=== PATIENT | male | born 1945 | race Caucasian/White ===

== ENCOUNTER 2024-11-22 14:02 | Outpatient (AMB) | payer OTHER, SELFPAY ==
--- NOTE | 2024-11-22 14:03 | MHC.OFFVIS ---
Intake Visit Reasons: Dementia Follow Up Allergies No Known Allergies Allergy (Verified 09/26/24 07:50) HPI Comments Details: 79 yo RH man with underlying diagnoses of bipolar disorder, hypothyroidism, HTN and DM was here for dementia probably of multifactorial in origin. She is presenting with Alzheimer's Disease and concerns regarding increased fall risk. He reports confusion associated with Alzheimer's Disease, using different words to express similar thoughts while noting a decrease in severity compared to previous episodes. While managing his medication, he has not reported any alcohol consumption and adheres to his prescribed 10 mg daily regimen. Bilaterally, he experiences balance difficulties, leading to occasional falls, the latest occurring when entering the clinic. Dizziness is common upon standing, which may contribute to his fall risk. The consultation also touched upon difficulties in arranging a cardiac follow-up, impacting overall management. The patient remains under the care of family members actively involved in his appointments. [facility] Medical History (Updated 11/22/24 @ 14:12 by Jorge Luis Stewart MD) Alzheimer disease Cerebral microvascular disease Multifactorial dementia Review of Systems Const Details: - Neurological: Reports dizziness, using different words with similar meanings; Denies hallucinations - Musculoskeletal: Reports falls - Psychiatric: Denies alcohol use Physical Exam Neuro Other: Mental Status: Alert and oriented to person, place, and time. Normal attention. Normal spontaneous speech, fluency, and comprehension. Cranial Nerves: There was mild left-sided facial weakness. Gait: He is walking in his slow paced cautious gait with a cane. Extrapyramidal: Full facial expressions and blinking. No rigidity. Movements are appropriate with no tremor or abnormality. Speech: Normal; no dysarthria or tremor. Assessment & Plan Assessment & Plan (1) Multifactorial dementia: Comment: CT brain WO at [facility] in Feb 2024: Mild left frontal area MVD Code(s): F03.90 - Unspecified dementia, unspecified severity, without behavioral disturbance, psychotic disturbance, mood disturbance, and anxiety Category: Medical (2) Alzheimer disease: Code(s): G30.9 - Alzheimer's disease, unspecified; F02.80 - Dementia in other diseases classified elsewhere, unspecified severity, without behavioral disturbance, psychotic disturbance, mood disturbance, and anxiety Category: Medical (3) Gait disorder: Code(s): R26.9 - Unspecified abnormalities of gait and mobility Category: Medical Plan 79 years old man probably with Alzheimer dementia. Recently has been falling. Exam revealed cognitive difficulties and mild left central facial weakness. An MRI of brain was requested to rule out any structural lesion. Orders: Orders MR head/brain wo con Today F02.80 - Dementia in other diseases classified elsewhere, unspecified severity, without behavioral disturbance, psychotic disturbance, mood disturbance, and anxiety, G30.9 - Alzheimer's disease, unspecified, R26.9 - Unspecified abnormalities of gait and mobility Medications: New donepezil 10 mg PO BEDTIME 90 tabs 1RF Coding Level of Care Code Est Pt Level 4 (81251) Diagnoses Multifactorial dementia F03.90 Alzheimer disease G30.9; F02.80 Gait disorder R26.9
--- OUTSIDE RECORDS SUMMARY | 2024-11-22 17:46 | XMS_ITS | Encounter Summary ---
Author Organization [facility] Address [address] [place] [address] Phone Care Team Providers Care Facing End Trimmer Name Role Phone Sinan Ochoa MD Primary Care Provider [phone] Encounter Details Date Type Department Care Team (Late st Contact Info) Description 02/16/2023 Documentation Only [facility] [address] [place] [address] Sinan Ochoa MD [address] [place] [address] Social History Tobacco Use Types Packs/Day Years Used Date Smoking Tobacco: Never Assessed Sex and Gender Information Value Date Recorded Sex Assigned at Not on file Legal Sex Male 5:09 PM EST Gender Identity Not on file Sexual Orientation Not on file documented as of this encounter Plan of Treatment Not on file documented as of this encounter Visit Diagnoses Not on filedocumented in this encounter Care Teams Facing End Trimmer Relationship Specialty Start Date End Date Sinan Ochoa MD PCP - General Internal Medicine 02/16/23 documented as of this encounter
--- OUTSIDE RECORDS SUMMARY | 2024-11-22 17:46 | XMS_ITS | Clinical Summary ---
Author Organization [facility] Address [address] [place] [address] Care Team Providers Care City Route Driver Name Role Phone Sinan Ochoa MD Primary Care Provider [phone] Social History Tobacco Use Types Packs/Day Years Used Date Smoking Tobacco: Never Assessed Sex and Gender Information Value Date Recorded Sex Assigned at Not on file Legal Sex Male 5:09 PM EST Gender Identity Not on file Sexual Orientation Not on file Plan of Treatment Health Maintenance Due Date Last Done Comments Pneumococcal Vaccine: 50+ Ye ars (1 of 1 - PCV) 09/22/1995 Influenza Vaccine (#1) 2024 Hepatitis B Vaccine Aged Out No longe r eligible based on patient's age to complete this topic Insurance Care Teams City Route Driver Relationship Specialty Start Date End Date Sinan Ochoa MD PCP - General Internal Medicine 02/16/23
--- OUTSIDE RECORDS SUMMARY | 2024-11-22 17:46 | XMS_ITS ---
Author Name [facility] Organization [facility] Care Team Organization Name Specialty Phone Email Start Date End Da te [facility] Sinan Ochoa Primary Care 01/13/2022 10/25/19 24
== END 2024-11-22 14:25 | disposition home or self-care (01) ==
LOC: HO.HSM 14:02
PROVIDERS: PCP Internal Medicine; Visit Provider Psychiatry & Neurology Neurology
DX: G30.9 Alzheimer's disease, unspecified (principal); F02.80 Dementia in other diseases classified elsewhere, unspecified severity, without behavioral disturbance, psychotic disturbance, mood disturbance, and anxiety; R26.9 Unspecified abnormalities of gait and mobility; F03.90 Unspecified dementia, unspecified severity, without behavioral disturbance, psychotic disturbance, mood disturbance, and anxiety
CPT/HCPCS: 99214

== ENCOUNTER 2024-12-26 10:03 | Outpatient (REF) | payer OTHER, SELFPAY ==
--- NOTE | ~2024-12-26 | MR_ITS ---
EXAMINATION: MR BRAIN WITHOUT CONTRAST CLINICAL INFORMATION: R 26.9. Unspecified abnormalities of gait and mobility. COMPARISON: None available. TECHNIQUE: MRI of the brain was obtained using routine sequences without contrast. FINDINGS: No restricted diffusion. No acute intracranial hemorrhage, mass effect, midline shift, hydrocephalus or herniation. Cruz-white matter differentiation is normal. Bilateral multifocal patchy and confluent deep periventricular white matter hyperintense T2 FLAIR signal involving centrum semiovale, nye radiata and brainstem mostly lenard. 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 Prominence of the extra-axial CSF spaces cerebral sulci, ventricles and cerebellar folia. Craniocervical junction is intact with normal position of the cerebellar tonsils. Sellar/suprasellar region demonstrated no signal abnormality or gross masses. MR/MR head/brain wo con IMPRESSION: No acute stroke/nonhemorrhagic ischemia. 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 Global cerebral atrophy. Electronically signed by: Dez Sue MD 12/26/2024 11:00 AM EDT
== END 2024-12-26 10:04 | disposition home or self-care (01) ==
LOC: HO.MRI 10:03
PROVIDERS: PCP Internal Medicine; Visit Provider Psychiatry & Neurology Neurology
DX: R26.9 Unspecified abnormalities of gait and mobility (principal); G30.9 Alzheimer's disease, unspecified; F02.80 Dementia in other diseases classified elsewhere, unspecified severity, without behavioral disturbance, psychotic disturbance, mood disturbance, and anxiety
CPT/HCPCS: 70551

== ENCOUNTER → 2024-12-26 10:03 | Outpatient (BNV) | payer OTHER, SELFPAY | PROVIDERS: PCP Internal Medicine; Visit Provider Radiology Diagnostic Radiology | DX: R90.82 White matter disease, unspecified (principal); G31.9 Degenerative disease of nervous system, unspecified | CPT/HCPCS: 70551 ==